=== PATIENT | female | born 1990 | race Caucasian/White ===

== ENCOUNTER 2017-09-24 11:16 | Observation (INO) | payer OTHER ==
[2016-08-23 08:29] VITALS: BP 120/72
[~2017-09-24 11:16] MED LIST: CYCL10TA2 PO; NAPR500T4 PO; ONDA4TAB10 SL
[2017-09-24] MEDS ORDERED: IV RINGERS,LACTATED 1000ML 1,000 ML IV SCH (11:42)
[2017-09-24 12:05] LABS: NEG OBC AMNIO NEG; POS OBC AMNIO POS
[2017-09-24 12:48] LABS: BILIRUBIN,URINE NEGATIVE (NEG); GLUCOSE,URINE NEGATIVE (NEG); NITRITE,URINE NEGATIVE (NEG); PH,URINE 7.5; PROTEIN,URINE NEGATIVE (NEG-TRACE)
[2017-09-24 13:03] LABS: BACTERIA,URINE MANY /HPF (0-FEW); RBC,URINE 0 /HPF (0-2); SQUAMOUS EPITHELIAL CELL,UR MANY /LPF
== END 2017-09-24 13:19 | disposition home or self-care (01) ==
LOC: 3 SO LND 11:16
PROVIDERS: ADMIT Specialist; ATTEND Specialist
DX: O42.913 Preterm premature rupture of membranes, unspecified as to length of time between rupture and onset of labor, third trimester (principal); Z3A.30 30 weeks gestation of pregnancy
CPT/HCPCS: 36415; 81001; 84112; 87086; G0378; G0379

== ENCOUNTER 2017-11-29 05:30 | Inpatient (IN) | payer BC ==
[2017-11-29] MEDS ORDERED: LIDOCAINE 1% PF 30 ML VIAL. INJ (05:45)
[2017-11-29] MEDS ORDERED: OXYTOCIN 30 UNIT/500 ML PREMIX 500 ML IV ×2 (05:45→17:15)
[2017-11-29] MEDS ORDERED: DINOPROSTONE 10 MG SUPP.VAG VG (05:45)
[2017-11-29] MEDS ORDERED: BUTORPHANOL 2 MG/ML VIAL. IV ×2 (05:45)
[2017-11-29] MEDS ORDERED: TERBUTALINE 1 MG/ML VIAL. SQ (05:45)
[2017-11-29] MEDS ORDERED: 0.9 % SODIUM CHLORIDE 10 ML DISP.SYRIN. IV ×2 (05:45→17:15)
[2017-11-29] MEDS ORDERED: fentaNYL PF VIAL 100 MCG/2 ML VIAL IV (05:45)
[2017-11-29] MEDS: IV RINGERS,LACTATED 1000ML 1,000 ML IV ×4 (06:17→21:36)
[2017-11-29 06:23] LABS: ADD MAN DIFF? NO
[2017-11-29 06:27] LABS: BASO % 0 % (0-3); EOS % 1 % (0-3); HEMATOCRIT 38.2 % (36.0-47.0); HEMOGLOBIN 12.9 g/dL (12.0-15.5); LYMPH # 1.7 x10^3/uL (1.0-4.8); LYMPH % 25 % (24-48); MEAN CORPUSCULAR HEMOGLOBIN 29 pg (25-35); MEAN CORPUSCULAR HGB CONC 34 g/dL (31-37); MEAN CORPUSCULAR VOLUME 85 fL (79-100); MONO # 0.5 x10^3/uL (0.0-1.1); MONO % 8 % (0-9); NEUT # 4.5 x10^3uL (1.8-7.7); NEUT % 66 % (31-73); PLATELET COUNT 231 x10^3/uL (140-400); RED CELL DISTRIBUTION WIDTH 14.1 % (11.5-14.5); WHITE BLOOD COUNT 6.8 x10^3/uL (4.0-11.0)
[2017-11-29] MEDS: OXYTOCIN 30 UNIT/500 ML PREMIX 500 ML IV (06:30)
[2017-11-29 07:12] LABS: BILIRUBIN,URINE NEGATIVE (NEG); CLARITY,URINE CLEAR; COLOR,URINE YELLOW; GLUCOSE,URINE NEGATIVE (NEG); NITRITE,URINE NEGATIVE (NEG); PH,URINE 6.5; PROTEIN,URINE NEGATIVE (NEG-TRACE)
[2017-11-29 07:27] LABS: SQUAMOUS EPITHELIAL CELL,UR MANY /LPF
[2017-11-29 07:28] LABS: BACTERIA,URINE MODERATE /HPF (0-FEW); RBC,URINE OCC /HPF (0-2)
[2017-11-29] MEDS ORDERED: L&D EPIDURAL SYRINGE 50 ML EP ×3 (09:38→14:00)
[2017-11-29] MEDS ORDERED: ePHEDrine PF IN SALINE 50 MG/5 ML DISP.SYRIN IV (09:45)
[2017-11-29] MEDS ORDERED: NALOXONE 0.4 MG/ML VIAL. IV ×2 (09:45→14:00)
[2017-11-29] MEDS ORDERED: L&D EPIDURAL CASSETTE 100 ML EP (09:45)
[2017-11-29] MEDS ORDERED: ROPIVacaine 0.2% IN 0.9%NACL PF 40 MG/20 ML DISP.SYRIN. EPI ×2 (09:45→14:00)
[2017-11-29] MEDS ORDERED: fentaNYL PF VIAL 100 MCG/2 ML VIAL EPI ×2 (09:45→14:00)
[2017-11-29] MEDS ORDERED: ROPIVacaine 0.2% IN 0.9%NACL PF 40 MG/20 ML DISP.SYRIN. (10:00)
[2017-11-29] MEDS: ONDANSETRON PF 4 MG/2 ML VIAL. IV (11:52)
[2017-11-29] MEDS ORDERED: L&D EPIDURAL 50 ML SYRINGE. EP (12:00)
[2017-11-29] MEDS ORDERED: IV RINGERS,LACTATED 1000ML 1,000 ML IV (14:00)
[2017-11-29] MEDS ORDERED: BUPIVACAINE MPF 0.25% 10 ML VIAL. EPI (14:00)
[2017-11-29] MEDS ORDERED: ZOLPIDEM 5 MG TABLET. PO (17:15)
[2017-11-29] MEDS ORDERED: IBUPROFEN 800 MG TABLET. PO (17:15)
[2017-11-29] MEDS ORDERED: MAG HYDROX/ALUMINUM HYD/SIMETH 30 ML ORAL.SUSP PO (17:15)
[2017-11-29] MEDS ORDERED: MAGNESIUM HYDROXIDE 2,400 MG/30 ML ORAL.SUSP. PO (17:15)
[2017-11-29] MEDS ORDERED: ACETAMINOPHEN 325 MG TABLET. PO (17:15)
[2017-11-29] MEDS ORDERED: MMR per PROTOCOL. MC (17:15)
[2017-11-29] MEDS ORDERED: HYDROCORTISONE 1% TOPICAL OINTMENT 30GM TUBE. TP (17:15)
[2017-11-29] MEDS ORDERED: diphenhydrAMINE HCL 25 MG CAPSULE PO (17:15)
[2017-11-29] MEDS ORDERED: PHENYLEPH/MINERAL OIL/PETROLAT RECTAL OINTMENT 28GM TUBE. RC (17:15)
[2017-11-29] MEDS ORDERED: SIMETHICONE 80 MG TAB.CHEW PO (17:15)
[2017-11-29] MEDS ORDERED: oxyCODONE/APAP 5/325 1 TAB TABLET PO (17:15)
[2017-11-29] MEDS: FERROUS SULFATE 325 MG TABLET. PO (17:30)
[2017-11-30] MEDS: IBUPROFEN 800 MG TABLET. PO ×2 (03:10→09:12)
[2017-11-30] MEDS: IV RINGERS,LACTATED 1000ML 1,000 ML IV ×3 (05:36→21:36)
[2017-11-30 05:54] LABS: ADD MAN DIFF? NO
[2017-11-30 06:08] LABS: BASO % 0 % (0-3); EOS # 0.1 x10^3/uL (0.0-0.7); EOS % 1 % (0-3); HEMATOCRIT 36.8 % (36.0-47.0); HEMOGLOBIN 12.2 g/dL (12.0-15.5); LYMPH # 1.7 x10^3/uL (1.0-4.8); LYMPH % 18 % (24-48); MEAN CORPUSCULAR HEMOGLOBIN 28 pg (25-35); MEAN CORPUSCULAR HGB CONC 33 g/dL (31-37); MEAN CORPUSCULAR VOLUME 86 fL (79-100); MONO # 0.7 x10^3/uL (0.0-1.1); MONO % 7 % (0-9); NEUT # 6.9 x10^3uL (1.8-7.7); NEUT % 74 % (31-73); PLATELET COUNT 216 x10^3/uL (140-400); RED BLOOD COUNT 4.31 x10^6/uL (3.50-5.40); RED CELL DISTRIBUTION WIDTH 14.1 % (11.5-14.5); WHITE BLOOD COUNT 9.3 x10^3/uL (4.0-11.0)
[2017-11-30 07:00] LABS: RPR Non Reactive (Non Reactive)
[2017-11-30] MEDS: FERROUS SULFATE 325 MG TABLET. PO ×2 (08:00→17:00)
[2017-11-30] MEDS: DOCUSATE SODIUM 100 MG CAPSULE. PO (09:12)
[2017-11-30] MEDS: BENZOCAINE 20% TOPICAL AEROSOL SPRAY 57GM CAN. TP (09:13)
[2017-12-01] MEDS: IBUPROFEN 800 MG TABLET. PO ×3 (01:28→17:26)
[2017-12-01] MEDS: DOCUSATE SODIUM 100 MG CAPSULE. PO (09:35)
[2017-12-01] MEDS: DIPHTH,PERTUSS(ACELL),TET TOX 0.5 ML DISP.SYRIN. VAX IM (12:02)
== END 2017-12-01 18:40 | disposition home or self-care (01) | DRG 775 ==
LOC: 3 SO LND 05:30 → 3 NORTH 21:00
PROC: 10E0XZZ Delivery of Products of Conception, External Approach (ICD-10-PCS; principal; 2017-11-29)
PROC: 3E033VJ Introduction of Other Hormone into Peripheral Vein, Percutaneous Approach (ICD-10-PCS; 2017-11-29)
PROC: 3E0234Z Introduction of Serum, Toxoid and Vaccine into Muscle, Percutaneous Approach (ICD-10-PCS; 2017-11-29)
PROC: 3E0R3BZ Introduction of Anesthetic Agent into Spinal Canal, Percutaneous Approach (ICD-10-PCS; 2017-11-29)
PROC: 00HU33Z Insertion of Infusion Device into Spinal Canal, Percutaneous Approach (ICD-10-PCS; 2017-11-29)
DX: O80 Encounter for full-term uncomplicated delivery (principal); Z23 Encounter for immunization; Z37.0 Single live birth; Z3A.39 39 weeks gestation of pregnancy
CPT/HCPCS: 36415; 81001; 85025; 86593; 86850; 86900; 86901; 87086; 90715; J2405; J2590; J2795; J7120